=== PATIENT | female | born 1955 | race Hispanic/Latino ===

== ENCOUNTER 2020-09-14 06:17 | Day surgery (SDC) | payer SELFPAY ==
[2020-09-13 11:23] LABS: Urine Appearance CLEAR (Clear); Urine Bilirubin NEGATIVE (Negative); Urine Blood NEGATIVE (Negative); Urine Color YELLOW (Yellow); Urine Glucose NEGATIVE (Negative); Urine Protein NEGATIVE (Negative); Urine Urobilinogen 0.2 mg/dL (0.2-1.0); Urine pH 7.5 (5.0-7.0)
[2020-09-13 11:24] LABS: Absolute Lymphocytes (CBC) 1.8 K/uL (0.7-4.9); Basophils % 0.7 % (0-1.3); Hematocrit 35.8 % (36.0-45.0); MPV 9.7 fL (7.6-11.3); RBC Red Blood Cell Count 3.96 M/uL (3.86-4.86)
[2020-09-13 11:28] LABS: Protime INR 1.01
[2020-09-13 11:35] LABS: Urine Microscopic Reflex ORDER UMIC
[2020-09-13 11:39] LABS: Potassium 4.4 mmol/L (3.5-5.1)
[2020-09-13 12:18] LABS: Urine Bacteria <20 /HPF (<20); Urine RBC NONE SEEN /HPF (NONE SEEN)
[2020-09-14] MEDS ORDERED: CEFAZOLIN/SWI 2gm 2 GM/20 ML SYR ONE (06:47)
[2020-09-14] MEDS ORDERED: Ringers Lactate 1,000 ML IV ONE ×2 (06:47→09:20)
[2020-09-14] MEDS ORDERED: NA CHLORIDE 0.9% 1,000 ML ONE (07:11)
[2020-09-14] MEDS ORDERED: BUPIVACAINE 0.25% PF 10 ML VIAL ONE (07:11)
[2020-09-14] MEDS ORDERED: NA CHLORIDE 0.9% 100 ML IV ONE (07:11)
[2020-09-14] MEDS ORDERED: propofoL 200 MG/20 ML VIAL IV ONE (07:42)
[2020-09-14] MEDS ORDERED: VECURONIUM 10 MG/VIAL IV ONE ×2 (07:43→10:07)
[2020-09-14] MEDS ORDERED: dexAMETHasone 10 MG/ML VIAL ONE (07:43)
[2020-09-14] MEDS ORDERED: ONDANSETRON 4 MG/2 ML VIAL ONE ×2 (07:43→11:51)
[2020-09-14] MEDS ORDERED: FENTANYL CITR 250 MCG/5 ML ONE (07:43)
[2020-09-14] MEDS ORDERED: LIDOCAINE 1% MPF 5 ML VIAL ONE (07:43)
[2020-09-14] MEDS ORDERED: MIDAZOLAM HCL 2 MG/2 ML INJ ONE (07:43)
[2020-09-14] MEDS ORDERED: NS 0.9% VIAL 10 ML ONE ×2 (07:43→10:54)
[2020-09-14] MEDS ORDERED: CEFAZOLIN/SWI 1gm 1 GM/10 ML SYR ONE (07:45)
[2020-09-14] MEDS: VASOPRESSIN 20 UNIT/ML VIAL ONE ×2 (08:47→08:50)
[2020-09-14] MEDS ORDERED: EPHEDRINE SULF 50 MG/ML VIAL ONE (08:48)
[2020-09-14] MEDS ORDERED: KETOROLAC 30 MG/ML INJ ONE (11:51)
[2020-09-14] MEDS ORDERED: GLYCOPYRROLATE 0.2 MG/ML SYR ONE (11:52)
[2020-09-14] MEDS ORDERED: NEOSTIGMINE 1 MG/ML -5 ML ONE (11:52)
[2020-09-14] MEDS ORDERED: HYDROCODONE/APAP 5/325 MG TAB PO PRN (12:15)
[2020-09-14] MEDS ORDERED: MEPERIDINE HCL 25 MG/ML SYR IM PRN (12:15)
[2020-09-14] MEDS ORDERED: NAPROXEN 500 MG PO PRN (12:15)
[2020-09-14] MEDS ORDERED: PROMETHAZINE INJ 25 MG/ML AMP IV PRN (12:15)
--- NOTE | 2020-09-14 13:11 | P.BOP ---
Preoperative diagnosis: stage 3 anterior wall defect, uterine prolapse,PB defect Postoperative diagnosis: occult IVETH Primary procedure: ant repair with biologic graft augmentation, dominique SSLF colpopexy Secondary procedure: PVD repair, perineal body repair, Urethral bulking cysto Power Wood Sawyer: Lashonda Escobar Estimated blood loss: 50 Specimen: none Findings: 0/+2/-4/6/mod/8/-3/-3/-5 Complications: None Drain(s): Urinary catheter Implants: dermapure, Bulkamid Transferred to: Recovery Room Condition: Good
[2020-09-14 14:35] VITALS: BP 117/56; TEMP 96.9; O2SAT 99
[2020-09-14] MEDS ORDERED: HYDROCODONE/APAP 5/325 MG TAB ONE (14:45)
[2020-09-14] MEDS ORDERED: Ringers Lactate 0 ML IV ONE (15:29)
[2020-09-15] MEDS ORDERED: HOME MED 1 EA UNK (Fiber [Fiber Diet] 1 EACH Tablet) PO SCH (09:00)
[2020-09-15] MEDS ORDERED: DOCUSATE NA 100 MG CAP PO SCH (09:00)
[2020-09-15] MEDS ORDERED: LEVOTHYROXINE SOD 0.1 MG TAB PO SCH (09:00)
[2020-09-15] MEDS ORDERED: MVI WITH MINERALS TAB PO SCH (09:00)
[2020-09-15] MEDS ORDERED: lisinopriL 10 MG TAB PO SCH (09:00)
== END 2020-09-14 14:36 | disposition home or self-care (01) ==
LOC: OR 06:17
PROVIDERS: ATTEND Obstetrics & Gynecology
PROC: 0TVD8ZZ Restriction of Urethra, Via Natural or Artificial Opening Endoscopic (ICD-10-PCS; 2020-09-14)
PROC: 0JUC0JZ Supplement of Pelvic Region Subcutaneous Tissue and Fascia with Synthetic Substitute, Open Approach (ICD-10-PCS; 2020-09-14)
PROC: 0HQ9XZZ Repair Perineum Skin, External Approach (ICD-10-PCS; 2020-09-14)
PROC: 0USG7ZZ Reposition Vagina, Via Natural or Artificial Opening (ICD-10-PCS; principal; 2020-09-14 07:30)
DX: N81.12 Cystocele, lateral (principal); R39.14 Feeling of incomplete bladder emptying; I10 Essential (primary) hypertension; K43.9 Ventral hernia without obstruction or gangrene; E05.90 Thyrotoxicosis, unspecified without thyrotoxic crisis or storm
CPT/HCPCS: 36415; 80048; 81003; 81015; 85025; 85610; 85730; 86850; 86900; 86901; 87086; 87088; J0690; J1100; J2250; J2405; J2704; J2710; J3010; J7030; J7120; L8606

== ENCOUNTER 2023-09-06 05:48 | Emergency (ER) | payer OTHER ==
--- OUTSIDE RECORDS SUMMARY | 2023-09-06 05:50 | XMS REPORT | Continuity of Care Document ---
Author Name Unknown Address [address] [place] [address] [address] [employer] Address [address] [place] [address] 1 [address] [place] [address] Care Team Providers Care Substation Manager Name Role Phone [email or web address] Attending Clinician Unavaila ble [email or web address]_S Admitting Clinician Unavaila ble Payers Payer Name Policy Type Policy Number Effective Date Expirati on Date Source [employer] (MEDICARE REPLACEMENT/ADVANTAGE - PPO) [id number] [place]: [email or web address] [id number] Encounters Start Date/Time End Date/Time Encounter Type Admission Type Attending Clinicians Care Facility Care Department Encounter ID Source 2022-12-09 00:00:00 2022-12-09 00:00:00 Outpatient [email or web address] [email or web address]_S PRIV PRIV [id number] [facility] 2022-12-09 00:00:00 2022-12-09 00:00:00 Outpatient [email or web address] [email or web address]_S PRIV PRIV [id number] [facility] 2022-11-14 00:00:00 2022-11-14 00:00:00 Outpatient [email or web address] diyala_S PRIV PRIV [id number] [facility] 2022-11-14 00:00:00 2022-11-14 00:00:00 Outpatient [email or web address] [email or web address] PRIV PRIV [id number] [facility]
--- NOTE | 2023-09-06 06:45 | EDPHYS ---
Physician Documentation [facility] Name: Sri Davies Age: 67 yrs Sex: Female : 1955 Arrival Date: 09/06/2023 Time: 05:48 Bed 7 Private MD: Ziggy Wu ED Physician Deon Hull HPI: 09/05 06:38 This 67 yrs old Female presents to ER via Ambulatory with complaints of Cough, sp4 Congestion, Pain, Sore Throat. 09/06 00:31 Patient presents with acute onset of sore throat and pain on swallowing. Also sp4 concurrent cough congestion.. Historical: - Allergies: 09/05 06:28 No Known Allergies; vc1 - Home Meds: :28 lisinopril 20 mg Oral tablet daily [Active]; metoprolol tartrate 50 mg Oral tablet vc1 [Active]; levothyroxine 100 mcg capsule daily [Active]; - PMHx: 06:28 Hypertensive disorder; Hypothyroidism; vc1 - PSHx: 06:28 None; vc1 - Immunization history:: Client reports receiving the 2nd dose of the Covid vaccine, Flu vaccine is up to date. - Infectious Disease History:: Denies. - Social history:: Smoking status: Patient denies any tobacco usage or history of. - Family history:: not pertinent. ROS: 09/06 00:31 Constitutional: Negative for fever, chills, and weight loss, positive cough, positive sp4 congestion, positive sore throat, positive pain on swallowing All other systems are negative, Exam: 00:31 Constitutional: This is a well developed, well nourished patient who is awake, alert, sp4 and in no acute distress. Head/Face: Normocephalic, atraumatic. Eyes: Pupils equal round and reactive to light, extra-ocular motions intact. Lids and lashes normal. Conjunctiva and sclera are not injected. Cornea within normal limits. Periorbital areas with no swelling, redness, or edema. ENT: Nares patent. No nasal discharge, no septal abnormalities noted. Tympanic membranes are normal and external auditory canals are clear. Oropharynx with bilateral tonsillar redness exudates as well. Mild tonsillar enlargement. Positive for strawberry tongue. Neck: Trachea midline, no thyromegaly or masses palpated, and no cervical lymphadenopathy. Supple, full range of motion without nuchal rigidity, or vertebral point tenderness. Chest/axilla: Normal chest wall appearance and motion. Nontender with no deformity. No lesions are appreciated. Cardiovascular: Regular rate and rhythm with a normal S1 and S2. No gallops, murmurs, or rubs. Normal PMI, no JVD. No pulse deficits. Respiratory: Lungs have equal breath sounds bilaterally, clear to auscultation and percussion. No rales, rhonchi or wheezes noted. No increased work of breathing, no retractions or nasal flaring. Abdomen/GI: Soft, with normal bowel sounds. No distension or tympany. No guarding or rebound. No evidence of tenderness throughout. Back: No spinal tenderness. No costovertebral tenderness. Skin: Warm, dry with normal turgor. Normal color with no rashes, no lesions, and no evidence of cellulitis. MS/ Extremity: Pulses equal, no cyanosis. Neurovascular intact. Full, normal range of motion. Neuro: Awake and alert, GCS 15, oriented to person, place, time, and situation. Cranial nerves II-XII grossly intact. Motor strength 5/5 in all extremities. Sensory grossly intact. Psych: Awake, alert, with orientation to person, place and time. Behavior, mood, and affect are within normal limits Vital Signs: 09/05 06:13 BP 174 / 84; Pulse 86; Resp 17; Temp 98.4; Pulse Ox 100% ; Weight 83.91 kg; Height 5 ty ft. 5 in. ; Pain 0/10; 07:16 BP 163 / 72; Pulse 70; Resp 18; Pulse Ox 100% on R/A; ld1 06:13 Body Mass Index 30.79 (83.91 kg, 165.1 cm) ty 06:13 Pain Scale: Adult ty [facility] Coma Score: 09/06 00:31 Eye Response: spontaneous(4). Motor Response: obeys commands(6). Verbal Response: sp4 oriented(5). Total: 15. MDM: 09/05 06:27 Patient medically screened. sp4 09/06 00:31 Differential Diagnosis: Obstructed Airway Bronchitis Influenza Upper Respiratory sp4 Infection Sinusitis Pharyngitis. Data reviewed: vital signs, nurses notes. ED course: Signs of tonsillitis. Will provide p.o. cephalexin for 10 days.. Administered Medications: 09/05 07:14 Drug: Rocephin (cefTRIAXone) IM 1 grams IM once Route: IM; Site: left gluteus; ld1 07:14 Drug: Ibuprofen PO 800 mg PO once Route: PO; ld1 07:14 Drug: Acetaminophen PO 1000 mg PO once Route: PO; ld1 Disposition Summary: 09/06/23 06:44 Discharge Ordered Notes: Location: Home sp4 Problem: new sp4 Symptoms: have improved sp4 Condition: Stable sp4 Diagnosis - Acute recurrent streptococcal tonsillitis sp4 Followup: sp4 - With: Ziggy Wu MD - When: 7 - 10 days - Reason: Recheck today's complaints Discharge Instructions: - Discharge Summary Sheet sp4 - Tonsillitis, [id number] sp4 Forms: - Patient Portal Instructions sp4 Prescriptions: - Cephalexin 500 mg Oral Capsule - take 1 capsule ORAL route every 12 hours for 10 days; 20 capsule; Refills: 0, sp4 Product Selection Permitted - Ibuprofen 800 mg Oral Tablet - take 1 tablet ORAL route every 8 hours As needed take with food; 30 tablet; sp4 Refills: 0, Product Selection Permitted Signatures: Stephanie Crawford RN RN ld1 Yuli Bruce RN RN vc1 Deon Hull MD MD sp4
--- NOTE | 2023-09-06 06:45 | ER ---
Nurse's Notes [facility] Name: Sri Davies Age: 67 yrs Sex: Female : 1955 Arrival Date: 09/06/2023 Time: 05:48 Bed 7 Private MD: Ziggy Wu Diagnosis: Acute recurrent streptococcal tonsillitis Presentation: 09/05 06:26 Chief complaint: Patient states: itchy scratchy sore throat since friday. Coronavirus vc1 screen: Vaccine status: Patient reports receiving the 2nd dose of the covid vaccine. Client denies travel out of the [place] in the last 14 days. sore throat, Client presents with at least one sign or symptom that may indicate coronavirus-19. Ebola Screen: Patient negative for fever greater than or equal to 101.5 degrees Fahrenheit, and additional compatible Ebola Virus Disease symptoms Patient denies exposure to infectious person. Patient denies travel to an Ebola-affected area in the 21 days before illness onset. No symptoms or risks identified at this time. Initial Sepsis Screen: Does the patient meet any 2 criteria? No. Patient's initial sepsis screen is negative. Does the patient have a suspected source of infection? No. Patient's initial sepsis screen is negative. Risk Assessment: Do you want to hurt yourself or someone else? Patient reports no desire to harm self or others. Onset of symptoms was August 30, 2023. 06:26 Method Of Arrival: Ambulatory vc1 06:26 Acuity: COREEN 4 vc1 Triage Assessment: 06:30 General: Appears in no apparent distress. uncomfortable, ill, slender, well groomed, vc1 well developed, well nourished, Behavior is calm, cooperative, appropriate for age. Pain: Complains of pain in throat Pain does not radiate. Pain currently is 0 out of 10 on a pain scale. Aggravated by eating, drinking. EENT: Reports nasal congestion. Neuro: Level of Consciousness is awake, alert, obeys commands, Oriented to person, place, time, situation, Appropriate for age. Respiratory: Breath sounds are clear bilaterally. Respiratory: Reports cough that is the patient has mild shortness of breath. Derm: Skin is intact, is healthy with good turgor, Skin is dry, Skin is normal, Skin temperature is warm. Historical: - Allergies: 06:28 No Known Allergies; vc1 - Home Meds: 06:28 lisinopril 20 mg Oral tablet daily [Active]; metoprolol tartrate 50 mg Oral tablet vc1 [Active]; levothyroxine 100 mcg capsule daily [Active]; - PMHx: :28 Hypertensive disorder; Hypothyroidism; vc1 - PSHx: :28 None; vc1 - Immunization history:: Client reports receiving the 2nd dose of the Covid vaccine, Flu vaccine is up to date. - Infectious Disease History:: Denies. - Social history:: Smoking status: Patient denies any tobacco usage or history of. - Family history:: not pertinent. Screenin:32 [facility] ED Fall Risk Assessment (Adult) History of falling in the last 3 months, vc1 including since admission No falls in past 3 months (0 pts) Confusion or Disorientation No (0 pts) Intoxicated or Sedated No (0 pts) Impaired Gait No (0 pts) Mobility Assist Device Used No (0 pt) Altered Elimination No (0 pt) Score/Fall Risk Level 0 - 2 = Low Risk Oriented to surroundings, Maintained a safe environment, Educated pt \T\ family on fall prevention, incl call for assistance when getting out of bed. Abuse screen: Denies threats or abuse. Nutritional screening: No deficits noted. Tuberculosis screening: No symptoms or risk factors identified. Assessment: 06:44 General: Appears in no apparent distress. comfortable, Behavior is calm, cooperative, kd4 Smells of. Pain: Denies pain. Neuro: Level of Consciousness is awake, alert, obeys commands, Oriented to person, place, time, situation, Appropriate for age. Cardiovascular: No deficits noted. Denies chest pain. Respiratory: No deficits noted. Airway is patent. GI: No signs and/or symptoms were reported involving the gastrointestinal system. : No signs and/or symptoms were reported regarding the genitourinary system. EENT: Reports strep throat. 07:16 Reassessment: Patient appears in no apparent distress at this time. No changes from ld1 previously documented assessment. Patient and/or family updated on plan of care and expected duration. Pain level reassessed. Patient is alert, oriented x 3, equal unlabored respirations, skin warm/dry/pink. Vital Signs: 06:13 BP 174 / 84; Pulse 86; Resp 17; Temp 98.4; Pulse Ox 100% ; Weight 83.91 kg; Height 5 ty ft. 5 in. ; Pain 0/10; 07:16 BP 163 / 72; Pulse 70; Resp 18; Pulse Ox 100% on R/A; ld1 06:13 Body Mass Index 30.79 (83.91 kg, 165.1 cm) ty 06:13 Pain Scale: Adult ty [facility] Coma Score: 09/06 00:31 Eye Response: spontaneous(4). Motor Response: obeys commands(6). Verbal Response: sp4 oriented(5). Total: 15. ED Course: 09/05 05:52 Patient arrived in ED. gm2 05:53 Ziggy Wu MD is Private Physician. gm2 06:05 Deon Hull MD is Attending Physician. vc1 06:28 Triage completed. vc1 06:44 Ziggy Wu MD is Referral Physician. sp4 06:44 Patient has correct armband on for positive identification. kd4 07:16 No provider procedures requiring assistance completed. Patient did not have IV access ld1 during this emergency room visit. 07:23 Arm band placed on right wrist. ld1 Administered Medications: 07:14 Drug: Rocephin (cefTRIAXone) IM 1 grams IM once Route: IM; Site: left gluteus; ld1 07:14 Drug: Ibuprofen PO 800 mg PO once Route: PO; ld1 07:14 Drug: Acetaminophen PO 1000 mg PO once Route: PO; ld1 Medication: 06:32 VIS not applicable for this client. vc1 Outcome: 06:44 Discharge ordered by . sp4 07:23 Discharged to home ambulatory, ld1 07:23 Condition: stable 07:23 Discharge instructions given to patient, family, Instructed on discharge instructions, follow up and referral plans. medication usage, Demonstrated understanding of instructions, follow-up care, medications, Prescriptions given X 2, 07:23 Patient left the ED. ld1 Signatures: Stephanie Crawford RN RN ld1 Yuli Bruce RN RN vc1 Deon Hull MD MD sp4 Kesha Farley gm2 Alberto Naranjo ty Huseyin Nascimento RN RN kd4
[2023-09-06] MEDS ORDERED: CEFTRIAXONE 1000 MG/VIAL ONE (07:03)
[2023-09-06] MEDS ORDERED: ACETAMINOPHEN 500 MG TAB ONE (07:03)
[2023-09-06] MEDS ORDERED: LIDOCAINE 1% MPF 5 ML VIAL ONE (07:03)
[2023-09-06] MEDS ORDERED: IBUPROFEN 400 MG TAB ONE (07:04)
[2023-09-06 07:34] VITALS: BP 163/72; TEMP 98.4; O2SAT 100
== END 2023-09-06 07:23 | disposition home or self-care (01) ==
LOC: ER 05:48
DX: J03.00 Acute streptococcal tonsillitis, unspecified (principal)
CPT/HCPCS: J2001; J0696; 96372; 99284